=== PATIENT | female | born 1970 | race Caucasian/White ===

== ENCOUNTER 2022-10-03 17:14 | Emergency (ER) | payer MEDICAID ==
[~2022-10-03] VITALS: Ht 165.1 cm; Wt 54.4 kg
--- NOTE | 2022-10-03 17:41 | NUR ---
PT IS IN ROOM #1B. DR PERRIN EVALUATED THE PT.
[2022-10-03 18:18] LABS: HEMATOCRIT 40.8 % (31.2-41.9); MEAN CORPUSCULAR HEMOGLOBIN 30.6 uug (24.7-32.8); MEAN CORPUSCULAR VOLUME 90.6 fL (75.5-95.3); PLATELET COUNT (AUTO) 348 K/uL (179-408)
[2022-10-03 18:21] LABS: CREATININE 0.8 mg/dL (0.6-1.3); POTASSIUM 3.6 mmol/L (3.5-5.1)
[2022-10-03] MEDS ORDERED: VALA100026 PO (18:24)
[2022-10-03] MEDS ORDERED: AMOX-430 PO (18:24)
[2022-10-03] MEDS ORDERED: PRED20TA PO ×2 (18:24→18:43)
[2022-10-03] MEDS ORDERED: ACETAMINOPHEN ES 500 MG TABLET PO ONE (18:30)
[2022-10-03] MEDS ORDERED: IBUPROFEN 600 MG TABLET PO ONE (18:30)
[2022-10-03] MEDS ORDERED: IBUPROFEN 600 MG TABLET ONE (18:31)
[2022-10-03] MEDS ORDERED: ACETAMINOPHEN ES 500 MG TABLET ONE (18:31)
[2022-10-03] MEDS ORDERED: predniSONE 20 MG TABLET PO ONE (18:45)
[2022-10-03] MEDS ORDERED: VALACYCLOVIR HCL 500 MG TABLET PO ONE (18:45)
[2022-10-03] MEDS ORDERED: AMOXICILLIN-CLAVUL 875-125MG TABLET PO ONE (18:45)
[2022-10-03] MEDS ORDERED: VALACYCLOVIR HCL 500 MG TABLET ONE (18:59)
[2022-10-03] MEDS ORDERED: AMOXICILLIN-CLAVUL 875-125MG TABLET ONE (19:00)
[2022-10-03] MEDS ORDERED: predniSONE 20 MG TABLET ONE (19:00)
[2022-10-03 20:43] VITALS: BP 122/80
--- NOTE | 2022-10-03 20:43 | NUR ---
Patient discharged to home in stable condition. Written and verbal after care instructions given. Patient verbalizes understanding of instructions. Stressed follow up or return to ER for worsening s/s.
== END 2022-10-03 20:44 | disposition home or self-care (01) ==
LOC: ER 17:27
DX: R29.810 Facial weakness (principal)
CPT/HCPCS: 99284; 70450; 80048; 85025; 36415; J7512; A4663; A9150

== ENCOUNTER 2022-11-19 12:08 | Emergency (ER) | payer BC ==
[~2022-11-19] VITALS: Ht 165.1 cm; Wt 55.3 kg
[~2022-11-19 12:08] MED LIST: AMOX-430 PO; PRED20TA PO; VALA100026 PO
--- NOTE | 2022-11-19 12:22 | NUR ---
PT IS IN ROOM #2A. DR HAMILTON EVALUATED THE PT.
[2022-11-19] MEDS ORDERED: MECLIZINE HCL 25 MG TABLET PO ONE (13:00)
[2022-11-19] MEDS ORDERED: IV NORMAL SALINE 1000 ML BAG IV ONE (13:00)
[2022-11-19] MEDS ORDERED: MECLIZINE HCL 25 MG TABLET ONE (13:02)
[2022-11-19 13:34] LABS: HEMATOCRIT 41.5 % (31.2-41.9); MEAN CORPUSCULAR HEMOGLOBIN 31.4 uug (24.7-32.8); MEAN CORPUSCULAR VOLUME 92.9 fL (75.5-95.3); PLATELET COUNT (AUTO) 258 K/uL (179-408)
[2022-11-19 13:50] LABS: CREATININE 0.6 mg/dL (0.6-1.3); POTASSIUM 3.5 mmol/L (3.5-5.1)
[2022-11-19] MEDS ORDERED: MECL-159 PO (14:18)
--- NOTE | 2022-11-19 15:23 | NUR ---
PT WAS D/C'd TO HOME. D/C INSTRUCTIONS GIVEN TO THE PT BY DR NAVA.
[2022-11-19 15:25] VITALS: BP 126/71
== END 2022-11-19 15:26 | disposition home or self-care (01) ==
LOC: ER 12:08
DX: R42 Dizziness and giddiness (principal); N94.89 Other specified conditions associated with female genital organs and menstrual cycle
CPT/HCPCS: 99284; 96360; 80048; 85025; 36415; 93005; J7040; A4663; J8597